=== PATIENT | male | born 1965 ===

== ENCOUNTER 2020-01-22 08:32 | Inpatient (IN) | payer OTHER ==
[~2020-01-22] VITALS: Ht 172.7 cm; Wt 90.5 kg
--- NOTE | 2020-01-22 13:18 | NUR ---
PT IS ABLE TO TRANSFER SELF FROM GURNEY TO BED WITH STANDBY ASSIST FOR CORD MANAGEMENT. PT DENIES PAIN, NAUSEA, AND SOB AT THIS TIME. IV SITE IS INTACT, NO REDNESS OR SWELLING NOTED, FLUSHES EASILY, PT DENIES PAIN AT SITE.
--- NOTE | 2020-01-22 13:40 | NUR ---
PT ABLE TO EAT 100% OF HIS LUNCH WITH GOOD PO FLUID INTAKE.
--- NOTE | 2020-01-22 14:05 | NUR ---
EDUCATION PROVIDED TO PT ABOUT COVID, REMDESIVIR, TYPE 2 DM, PLAN OF CARE. ALL PT QUESTIONS ANSWERED. PT PARTICIPATES WELL.
--- NOTE | 2020-01-22 14:20 | NUR ---
CALLED TO UPDATE ON PT STATUS FOR O2 REQUIREMENT. AFTER EATING LUNCH, PT O2 SAT INCREASES TO MID 90'S WHILE ON 5L O2 FLOW VIA NC. PT IS ABLE TO ALLIE O2 FLOW OF 3L AND MAINTAIN ABOVE 90%.
[2020-01-22] MEDS ORDERED: LOPERAMIDE2 M1 PO (14:43)
[2020-01-22] MEDS ORDERED: ZOFRAN4 MG PO (14:44)
[2020-01-22] MEDS ORDERED: TYLENOL325 MG PO (14:45)
[2020-01-22] MEDS ORDERED: DECADRON6 MG PO (14:45)
[2020-01-22] MEDS ORDERED: LEVOFLOXACIN500 MG PO (14:48)
[2020-01-22] MEDS ORDERED: CEFTRIAXONE1 G2 IM (14:49)
--- NOTE | 2020-01-22 14:49 | NUR ---
MED REC COMPLETE
--- NOTE | 2020-01-22 16:10 | NUR ---
pt o2 turned up to 4l flow via nc due to occasional desat down to 84% while on 3l.
--- NOTE | 2020-01-22 16:23 | NUR ---
DR. HAYES UPDATED ON URINE OUTPUT. ORDER REC'D TO GIVE FLUID BOLUS OF 500 ML LR OVER 1 HR.
--- NOTE | 2020-01-22 17:40 | NUR ---
pt given dinner, and correctional insulin. pt instructed on proning in bed from right to left side and belly. pt verbalizes understanding of this therapy, and is agreable to this. reminders written on the white board. encouraged pt to use incentive spirometer and acapella. pt reports pain in rt shoulder is "better".
--- NOTE | 2020-01-22 19:05 | NUR ---
PT ALERT AND ORIENTED X4 ALL SHIFT. CORRECTIONAL RESTRAINTS ASSESSED EVERY 2 HOURS FOR PT SAFETY AND COMFORT, [facility] OFFICERS X2 AT BEDSIDE ALL SHIFT. 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 CALL LIGHT IS WITHIN PT REACH, PT EDUCATED ON HOW TO USE. PT ABLE TO REPOSITON SELF EASILY IN BED, STANDS AT BEDSIDE TO VOID AND USES URINAL.
--- NOTE | 2020-01-22 19:30 | NUR ---
SHIFT REPORT RECEIVED. PATIENT RESTING IN BED WATCHING TV. VS STABLE. CALL LIGHT IN REACH. CO X2 AT DOOR.
--- NOTE | 2020-01-22 20:30 | NUR ---
PATIENT PROVIDED WITH EVENING MEDS. ACCU CHECK, SSI PER ORDER. DISCUSSED REASONS FOR GLUCOSE CONTROL AND EFFECT OF DECADRON TREATMENT ON BLOOD GLUCOSE. PATIENT HAS MODERATE UNDERSTANIDNG. IV FLUIDS PER ORDER, SITE WNL. REENFORCED WITH COBAN. VS SATBLE, ORAL TEMP WNL. PATIENT VOIDED TWICE FOR A TOTAL OF 600 MLS SINCE DAYSHIFT WAS IN ROOM. AND ATE 75% OF HIS DINNER. PATIENT DENIED GI ISSUES AT THIS TIME. NOT SOB AT REST BUT STATES "IT FEELS LIKE I CAN'T GET A GOOD BREATH IN". ENCOURAGED CPT AND IS USE. PATIENT ON 4L NC WITH HUMIDIFICATION. TOLERATED ACTIVITY UP TO THE BATHROOM TO BRUSH HIS TEETH AND WASH HIS FACE. PATIENT OFFERED A GOWN, WHICH HE DECLINED. WEARING THE CUSTODIAL OUTFIT. PATIENT RETURNED TO BED. FRESH ICE WATER PROVIDED. CALL LIGHT IN REACH. PATIENT DENIED OTHER NEEDS.
--- NOTE | 2020-01-22 23:58 | NUR ---
PATIENT APPEARED TO BE SLEEPING WELL. NC OFF OF PATIENT, PATIENT AT 90% ON ROOM AIR. PATIENT WOKE EASILY TO VOICE. ASSISTED PATIENT TO REPSOITION. PROVIDED A CLOTH TO COVER HIS EYES. URNAL EMPTIED. IV STABLE. IV FLUIDS PER ORDER. SITE WNL. NC PLACED BACK ONTO PATIENT AND TURNED TO 2L. PATIENT DENIED ANY FURTHER NEEDS. CALL LIGHT IN REACH.
--- NOTE | 2020-01-23 02:00 | NUR ---
PATIENT APPEARS TO BE SLEEPING. TURNED TO RIGHT SIDE. VS STABLE. O2 SAT 90-92% ON 2L NC.
--- NOTE | 2020-01-23 05:00 | NUR ---
PATIENT WOKE EASILY TO VOICE. MORNING LABS DRAWN. PATIENT TOLERATED WELL. IV SITE IN RIGHT HAND APPEARS WNL. PATIENT DENIES ANY NEEDS OR CONCERNS THIS MORNING. NC WAS DISPLACED FROM NOSE. PATIENT 90% ON ROOM AIR. NC REPLACED AND TITRATED TO 1L.
--- NOTE | 2020-01-23 08:52 | NUR ---
PT RESTING IN HIS BED AND STATES HE HAS SOME SLIGHT SOB. UNABLE TO ASULATE LUNGS DUE TO PAPR. RR 19 AND HIS SAT IS 94% ON 1L AT THIS TIME. PT ENCOUARAGE TO CONTINUE TO PRONE AND USE HIS IS WHICH HE STATES HE DOES SOME. PT STATES HE HAS AN OCC NON PRODUCTIVE COUGH. PT STATES HE FEELS A BIT WEAK IN HIS ARMS AND LEGS WHICH IS UNCHANGED. HE STATES HE HAS HAD A POOR APPITITE BUT THAT IT NOW SEEMS TO HAVE RETURNED. PT DENIES ANY PAIN OR OTHER PROBLEMS AT THIS TIME. SEE ASSESSMENT.
--- NOTE | 2020-01-23 09:39 | NUR ---
Pt watching tv and appears in no distress at this time.
--- NOTE | 2020-01-23 11:28 | NUR ---
Pt continues resting in his bed and he denies any problems at this time. Pt repositioned to his right side at this time after reinforcing the reasoning for proning.
--- NOTE | 2020-01-23 12:07 | NUR ---
PT CONTINUES TO DENY ANY PAIN OR NEW PROBLEMS. HE STATES HE CONTINUES TO HAVE SOME SLIGHT SOB BUT STATES THAT IT IS IMPROVING. PT JUST USED HIS IS AND IS NOW HITTING 1000, PER RT IT WAS 750 YESTERDAY. SAT ON 1L VIA NC IS 94% AND HIS RR IS 22 AT THIS TIME. SEE ASSESSMENT.
--- NOTE | 2020-01-23 12:37 | NUR ---
Pt ambulated to the br and gave himself a sponge bath and a shave and changed his clothes. He states his breathing felt unchanged and his sat on returning to his bed while on 1l is 94%. While he was cleaning up his bedding was changed as well. Pt continues to deny any new problems.
--- NOTE | 2020-01-23 12:58 | NUR ---
Dr Villatoro in the room with the pt at this time.
--- NOTE | 2020-01-23 14:59 | NUR ---
PT USING HIS IS AND ACUPELLA REQUESTED. PT HIT 1000 ON THE IS. PT IS PRONING ON AND OFF TODAY. SAT IS NOW 96% ON 1L VIA NC AND HIS RR IS 21. PT STATES HIS BREATING IS FEELING ABOUT THE SAME. SEE ASSESSMENT.
--- NOTE | 2020-01-23 16:38 | NUR ---
Pt watching tv and denies any complaints at this time.
--- NOTE | 2020-01-23 17:33 | NUR ---
Pt on 1lpm and had been stable , patient spo2 on monitor was 93% and rn and doctor rounding today has been stable. Observation from window only done by RT.
--- NOTE | 2020-01-23 17:38 | NUR ---
Pt resting in his bed eating his dinner and watching a football game. He denies any new problems and states his breathing feels about the same but states that it is a better than it was yesterday. Sat on 1l is 93% and RR is 20.
--- NOTE | 2020-01-23 19:07 | NUR ---
PATIENT UP TO THE BATHROOM WITH CO ASSIST. PATIENT STAYED ON 1L NC DURING ACTIVITY. AND WAS 93% UPON RETURNING TO BED. PATIENT HAD A BM AND VOIDED. PATIENT BACK IN BED. DENIES ANY NEEDS. CALL LIGHT IN REACH.
--- NOTE | 2020-01-23 21:06 | NUR ---
PATIENT RESTING IN BED. EVENING MEDS AND ACCU CHECK DONE. PATIENT REPORTS FEELING MORE ENERGY TODAY BUT CONTINUES TO HAVE SOME CHEST DISCOMFORT WITH ACTIVITY. PATIENT UP TO THE BATHROOM FOR EVENING CARES. ON ROOM AIR, O2 SAT 88% WHEN RETURNED TO BED. QUICKLY RECOVERED WITH 1L NC. VS STABLE. ORAL TEMP WNL.
--- NOTE | 2020-01-23 22:45 | NUR ---
PATIENT UP TO THE BATHROOM INDEPENDENTLY. STEADY ON HIS FEET. PATIENT REPORTS HAVING A LOOSE STOOL. PATIENT RETURNED TO BED. O2 SAT 90%, PUT NC BACK INTO PLACE WITH 1L.
--- NOTE | 2020-01-24 | NUR ---
PATIENT APPEARS TO BE SLEEPING. O2 SATS 92-95%. ALLOWED PATIENT TO REST. CALL LIGHT IN REACH.
--- NOTE | 2020-01-24 03:00 | NUR ---
PATIENT CONTINUES TO SLEEP SOUNDLY WITH O2 SATS 90-95% ON 1L NC. ALLOWED PATIENT TO REST. CALL LIGHT IN REACH.
--- NOTE | 2020-01-24 05:00 | NUR ---
PATIENT APPEARED TO BE SLEEPING SOUNDLY. WOKE EASILY TO VOICE. MORNING LABS DRAWN. VS STABLE. PATIENT REPORTS PAIN ON HIS LEFT WRIST WHERE CUFF IS RUBBING. SKIN IS INTACT. GAUZE SLEEVE PLACED UNDER CUFF TO PROTECT SKIN ON BOTH WRIST. ANLKE CUFSS ARE OVER SOCKS, SKIN WNL. PATIENT HAS REMOVED HIS NC AND TOLERATING ROOM AIR WITH O2 SAT 92-93%. DENIES FEELING SOB. NO OTHER NEEDS AT THIS TIME. CALL LIGHT IN REACH.
--- NOTE | 2020-01-24 07:34 | NUR ---
REPORT GIVEN BY RODY OBREGON. PT AWAKE, UP IN BED NOW AWAITING BREAKFAST.
--- NOTE | 2020-01-24 09:38 | NUR ---
DR. HAYES IN THIS MORNING TO ASSESS PT. BG STABLE, 125 THIS MORNING, 18 UNITS LANUTS GIVEN, HUMALOG HELD. PT EATING WELL. LANTUS DOSE DECREASED NOW TO 12 UNITS DAILY. PT BG TO BE MONITORED CLOSELY. PT DENIES SOB, BREATHING APPEARS UNLABORED, ABLE TO TOLERATE AMBULATING TO THE BATHROOM WELL. PT REMAINS ON ROOM AIR AND SATING IN THE MID 90'S. INDEPENDENT IN ROOM. PT DENIES N/V, REPORTS HAVING 2 LOOSE STOOLS OVERNIGHT, REFUSED METAMUCIL THIS MORNING. LIDOCAINE PATCH PLACED FOR CHRONIC RT SHOULDER PAIN. NO ACUTE CHANGES.
--- NOTE | 2020-01-24 10:58 | NUR ---
PT UP IN CHAIR WATCHING TELEVISION. CALL LIGHT WITHIN REACH. NO COMPLAINTS AT THIS TIME.
--- NOTE | 2020-01-24 12:30 | NUR ---
Pt still up in chair, has a had a good appetite, ate 100% of lunch. Watching television. Emptied 150 mls of clear, yellow urine from urinal. Notified pt of hypoglycemia s/s and to notify nurse if having any symptoms. Pt verbalized understanding. No complaints at this time. Call light within reach.
--- NOTE | 2020-01-24 15:00 | NUR ---
PT ASLEEP IN BED. VISUALIZED CHEST RISE AND FALL. CALL LIGHT WITHIN REACH.
--- NOTE | 2020-01-24 15:50 | NUR ---
PT AWAKE IN BED. REQUESTED SNACK, GIVEN SUGAR-FREE JELLO AND PUDDING. LUNG SOUNDS CLEAR. VSS. NO ACUTE CHANGES. CALL LIGHT WITHIN REACH.
--- NOTE | 2020-01-24 18:07 | NUR ---
PT HAS BEEN EATING AND DRINKING WELL THROUGHOUT THE DAY. AFTERNOON BG'S HAVE BEEN ELEVATED; 0800-125/ 1200-245/ 1700-208. PT ASKED IF HE WAS GOING TO NEED INSULIN LONG-TERM, THIS RN EXPLAINED HIS A1C LAB RESULT SHOULD BE BACK SATURDAY AND TREATMENT IS TO BE DETERMINED. PT WAS CONTENT WITH RESPONSE AND HAD NO OTHER QUESTIONS OR CONCERNS. CALL LIGHT WITHIN REACH.
--- NOTE | 2020-01-24 18:50 | NUR ---
PT ALERT AND ORIENTED X4 ALL SHIFT. [facility] RESTRAINTS ASSESSED X4, KERLIX PLACED UNDERNEATH WRIST RESTRAINTS FOR PT COMFORT. 2 [employer] OFFICERS MONITORING AT DOOR ALL SHIFT. PT ABLE TO MOVE AND AMBULATE WITH RESTRAINTS. IV IN RIGHT HAND FLUSHED X2, SITE WNL. PT DENIES PAIN, N/V. VSS. LUNG SOUNDS CLEAR. BG'S SLIGHTLY ELEVATED, REQUIRING SLIDING SCALE HUMALOG X2. LANTUS DOSE ADJUSTED TO [address] HAYES. PT EATING A DRINKING WELL THROUGHOUT DAY. SPENT 5 HOURS UP IN CHAIR WATCHING TELEVISION. PT IN BED RESTING NOW.
--- NOTE | 2020-01-24 20:30 | NUR ---
DISCUSSED PATIENT'S CONDITION WITH MD. CHANGED STATUS TO MED-SURG AND KEEPING PATIENT IN CCU FOR HOUSE CONVIENCE.
--- NOTE | 2020-01-24 21:00 | NUR ---
EVENING ACCU CHECK DONE. PATIENT REFUSED METAMUCIL. VS STABLE. TOLERATING ROOM AIR. REPORTS MINIMAL COUGH WITH NO SPUTUM PRODUCTION. IV SL, WNL. SKIN WNL UNDER RESTRAINTS. PATIENT ATE ABOUT 75% OF HIS DINNER. DENIES OTHER NEEDS AT THIS TIME. CALL LIGHT IN REACH.
--- NOTE | 2020-01-25 | NUR ---
PATIENT'S O2 SAT CONSISTENTLY GREATER THAN 90% ON ROOM AIR. PATIENT APPEARS TO BE SLEEPING SOUNDLY.
--- NOTE | 2020-01-25 02:15 | NUR ---
ACCU CHECK AND SSI DONE. PATIENT DENIED NEEDS.
--- NOTE | 2020-01-25 06:00 | NUR ---
IV SITE IN RIGHT HAND IS DIFFICULT TO FLUSH AND APPEARS RED. NEW SITE EASTABLISHED AND LABS DRAWN IN LEFT HAND. PATIENT TOLERATED WELL. VS STABLE. PATIENT DENIES ANY NEEDS OR CONCERNS.
--- NOTE | 2020-01-25 07:41 | NUR ---
REPORT RECIEVED FROM RODY OBREGON. LFT: AST AND ALT ARE ELEVATED THIS MORNING. WILL NOTIFY DR. MONTE AND SEE ABOUT REMDESIVIR DOSE/TIME. PT ASLEEP IN BED, VISUALIZED CHEST RISE AND FALL. CALL LIGHT WITHIN REACH.
--- NOTE | 2020-01-25 09:03 | NUR ---
DR. MONTE NOTIFIED OF ELEVATED AST/ALT. ORDERED TO CONTINUE PT ON REMDESIVIR. PT UP IN BED AND EATING BREAKFAST. BG 111 THIS MORNING, SS HUMALOG HELD, 12 UNITS OF LANTUS GIVEN. GOWN CHANGED AND FACE WASHED. 300 MLS OF CLEAR, YELLOW URINE EMPTIED FROM URINAL. PT DENIES PAIN, N/V. LIDOCAINE PATCH TO RT SHOULDER FOR CHRONIC PAIN BUT PT DENIES ANY AT THIS TIME. VSS. PT REPORTS TO HAVE SLEPT WELL LAST NIGHT. NO QUESTIONS OR CONCERNS AT THIS TIME. CALL LIGHT WITHIN REACH.
--- NOTE | 2020-01-25 11:00 | NUR ---
PT ON PRECAUTINS, I AM UNABLE TO VISIT AT THIS TIME. WILL FOLLOW NEEDED
--- NOTE | 2020-01-25 11:34 | NUR ---
Pt up in bed. Offered snack. BG checked, 209. Will give 2 units humalog. Awaiting arrival of lunch tray. 22 g IV in left hand now saline locked. Pt maintaining O2 sats in 90's on room air. Call light within reach.
--- NOTE | 2020-01-25 14:11 | NUR ---
PT VSS. URINAL EMPTIED. PT UP TO CHAIR. NO ACUTE CHANGES. PT DENIES FURTHER NEED. CALL LIGHT WITHIN REACH.
--- NOTE | 2020-01-25 17:34 | NUR ---
PT UP IN CHAIR ALL AFTERNOON. HAS HAD A GOOD DAY. ALERT AND ORIENTED X4. CORRECTIONAL RESTRAINTS IN PLACE BILATERAL WRISTS AND ANKLES, SKIN INTACT. PT HAS ATE AND DRANK WELL TODAY, WITH SUFFICIENT OUTPUT. URINE CLEAR, YELLOW. LUNG SOUNDS ARE CLEAR. VSS. 22G IV IN LEFT HAND REMAINS PATENT, SALINE FLUSHED 2X. PT AMBULATED TO BATHROOM WITHOUT DIFFICULTY, INDEPENDENT IN ROOM. PT DENIES PAIN AND NAUSEA AND IS W/O COMPLAINT AT THIS TIME. UP WATCHING TELEVISION, CALL LIGHT WITHIN REACH.
--- NOTE | 2020-01-25 19:33 | NUR ---
AT NURSES STATION. VERBAL ORDER FOR HEPATIC PANEL LABS FOR MORNING REPEATED BACK AND PLACED BY RN.
--- NOTE | 2020-01-25 19:50 | NUR ---
REPORT RECEIVED FROM AMY OBREGON. PT SITTING UP IN CHAIR, ON ROOM AIR. 2 CO'S SITTING OUTSIDE DOOR. NO APPARENT NEEDS AT THIS TIME.
--- NOTE | 2020-01-25 21:05 | NUR ---
ASSESSMENT COMPLETE, VS AND I/O'S COMPLETE. CBG CHECK AND INSULIN ADMINISTERED. VSS, A+Ox4. PATIENT DENIES PAIN OR DISCOMFORT. PATIENT EDUCATED REGARDING PREDIABETIC DIET, EXERCISE GOALS AND S/SX OF HYPO/HYPERGLYCEMIA. PATIENT VERBALIZES LEARNING. PRINTED EDUCATION SHEETS PROVIDED. IV WNL. FRESH TOWELS, WATER AND CLEAN GOWN PROVIDED. NO FURTHER NEEDS AT THIS TIME.
--- NOTE | 2020-01-25 22:31 | NUR ---
CALL LIGHT ANSWERED. SBA TO RESTROOM. pt VERBALIZES UNDERSTANDING TO USE CALL LIGHT WHEN FINISHED.
--- NOTE | 2020-01-25 22:59 | NUR ---
ROUNDED ON PT. LAYING IN BED WITH LIGHTS OFF. BREATHING EVEN AND UNLABORED. SPO2 AT 95%. NO APPARENT NEEDS AT THIS TIME.
--- NOTE | 2020-01-26 01:23 | NUR ---
CHECKED ON PATIENT, SLEEPING IN BED WITH LIGHTS OFF. BREATHING IS WNL.
--- NOTE | 2020-01-26 02:46 | NUR ---
ROUNDED ON PATIENT. SLEEPING IN BED WITH LIGHTS OFF. BREATHING UNLABORED. NO NEEDS AT THIS TIME.
--- NOTE | 2020-01-26 05:04 | NUR ---
PATIENT DOING WELL THIS SHIFT. VSS, A+OX4, PT DENIES PAIN OR DISCOMFORT THIS SHIFT. SCHEDULED MEDS GIVEN. PATIENT SLEPT MAJORITY OF NIGHT. EDUCATION REGARDING PREDIABETES PROVIDED. IV WNL. 2 CO'S OUTSIDE DOOR. PT DENIES ANY NEEDS.
--- NOTE | 2020-01-26 06:34 | NUR ---
ROUNDED ON PATIENT. LABS DRAWN, VS AND I/O'S COMPLETE, ASSESSMENT COMPLETE. PATIENT DENIES SOB, PAIN, DISCOMFORT. SPO2% WNL. ON ROOM AIR. VSS. NO COUGH NOTED. PATIENT LAYING IN BED WITH LIGHTS OFF. DENIES ANY NEEDS AT THIS TIME.
--- NOTE | 2020-01-26 07:34 | NUR ---
REPORT RECIEVED FROM TEODORA OBREGON. PT UP TO BATHROOM THIS MORNING. NO ACUTE CHANGES. PT IS WITHOUT COMPLAINT AT THIS TIME.
--- NOTE | 2020-01-26 09:50 | NUR ---
Called and spoke with Mylene at [facility]. Updated pt will be discharged today. She confirms pt will return to [facility] with correctional officers. Chart faxed. Nurse to Nurse call number given to CCU nurses.
--- NOTE | 2020-01-26 12:05 | NUR ---
REPORT CALLED TO MARTIN AT [facility] AT [phone]. PT CHANGED INTO CLOTHES FROM [facility] AND CHANGES INTO HARD 4 POINT RESTRAINTS. IV REMOVED. VSS. DC INSTRUCTIONS REVIEWED. PT PACKET GIVEN TO [facility]. PT HAS NO QUESTIONS OR CONCERNS AT DISCHARGE. THIS NURSE WHEELED PT OUT TO [facility] WITH [facility] PRESENT.
== END 2020-01-26 11:30 | disposition home or self-care (01) | DRG 177 ==
LOC: ED 08:32 → CCU 11:52
PROVIDERS: ADMIT Internal Medicine; ATTEND Internal Medicine
DX: U07.1 COVID-19 (principal); J12.89 Other viral pneumonia; J96.01 Acute respiratory failure with hypoxia; R73.03 Prediabetes; Z86.11 Personal history of tuberculosis
CPT/HCPCS: 71045; 80053; 80076; 83036; 83605; 85025; 85379; 94667; 99285-25; A9270; C9803; J1100; J1650; J1815; J7050; J7121